=== PATIENT | female | born 1995 | race Caucasian/White ===

== ENCOUNTER 2019-06-07 08:30 | Outpatient (CLI) | payer OTHER, SELFPAY ==
--- NOTE | 2019-06-17 11:23 | SLEEP_ITS ---
CPAP Titration DATE OF STUDY: 06/07/2019 ORDERING PHYSICIAN: Anuja Montenegro MD. REASON FOR THE STUDY: Prior home sleep test on April 16, 2019, for hypersomnolence showing an apnea-hypopnea index of 5, which is elevated with a history of depression, fatigue, and anxiety. She had spikes in heart rate, mild desaturation with severe excessive daytime sleepiness, which was out of proportion to the amount of sleep-disordered breathing. Her Gormania Sleepiness Scale score is 12. She returns at this time for a CPAP titration. MEDICAL COMORBIDITIES: Anxiety, depression, fatigue. MEDICATIONS: 1. Oral contraceptive. 2. Hydroxyzine 25 mg at bedtime. 3. Sertraline 50 mg at bedtime. HABITS: Never smoked tobacco. Caffeine, 1 to 2 per day. No alcohol. HISTORY: This patient is 64 inches tall, weighing 169 pounds with a body mass index of 29, and she is 24 years old. This test was conducted as a full night CPAP titration using the [employer] Multiple Channel System including EOG, EEG, submental EMG, EKG, nasal and oral airflow using thermistors and nasal pressure sensors, chest and abdominal belts, body position data, and pulse oximetry. The study was scored using CMS guidelines. Duration of the study was 457.2 minutes. Sleep time 301.8 minutes. Sleep efficiency is 66%. Sleep latency was 2.4 minutes which is short. REM latency is 162 minutes. She had 40 awakenings and spent 33.6% of the study awake after sleep onset. Sleep architecture showed 9% of stage 1 sleep, 30.7% stage 2 sleep, 21.3% stage 3 sleep, and 5.4% stage REM. She spent 40.5% of the study in the supine position. She had 3 REM episodes. Two of these were extremely short. She woke up after the last REM episode and really could not go back to sleep. She had mostly wakefulness in the last third of the night. The apnea-hypopnea index was 0.4. She had 1 mixed apnea in supine REM and 1 central apnea in supine non-REM. The supine index is 0.7. The supine REM index is 2.7. The lowest desaturation is 94%. She spent no time below 88%. She had 1 desaturation of 4% or greater for an index of 0.1. AROUSALS: 148 arousals for an index of 19.4. She had 3 snores for an index of 0.4, 138 spontaneous arousals for an index of 18.1. Limb movements: 18 isolated limb movements for an index of 3.6. Snorin snoring events, very light. EKG: Mean heart rate 70, without arrhythmia. The patient began the CPAP titration with a Lynne FX nasal pillow. Pressure was gradually increased for subtle respiratory effort related arousals and snoring. The patient did have supine REM. During this titration, CPAP was started at 5 cm and increased to 8 cm with 1 of EPR. She had excellent sleep efficiency on CPAP 7 with 1 of EPR, 98% sleep efficiency with a minimum saturation of 94% and an apnea-hypopnea index of 0.4. When the tech increased the pressure to 8 cm, the patient had 3 hours and 2 minutes in bed, but only had a sleep efficiency of 30%. For some reason, she could not sleep soundly. IMPRESSION: The CPAP titration shows an optimal pressure of 7 cm with 1 of EPR. At that setting, her apnea-hypopnea index is 0.4. However, it was concerning as the patient did not have consolidated sleep and was awake for the last third of the study. She used a small Lynne FX mask. She had mild snoring. We would recommend this with all episodes of sleep. Close followup is recommended to evaluate for effectiveness of treatment. The patient has severe excessive daytime sleepiness with an Gormania of 12 and a clinical history of severe excessive daytime sleepiness, nonrestorative sleep even if she has 15 hours of sleep. There is a family history of obstructive sleep apnea syndrome in her father. Her fatigue and ex
== END 2019-06-07 08:31 | disposition home or self-care (01) ==
LOC: ANHCSM 08:33
PROVIDERS: Visit Provider Family Medicine
DX: G47.33 Obstructive sleep apnea (adult) (pediatric) (principal)
CPT/HCPCS: 95811

== ENCOUNTER 2019-12-08 14:50 | Emergency (ER) | payer OTHER, SELFPAY ==
--- NOTE | ~2019-12-08 | CT_ITS ---
EXAMINATION: CT thoracic spine w con DATE: 12/08/2019 18:55 INDICATION: Mid back pain. TECHNIQUE: Computed tomography (CT) of the thoracic spine was performed with 100 mL Omnipaque 350 int ravenous contrast. Automated exposure control and iterative reconstruction technique were employed. T he dose-length product was 351.72 mGy-cm. COMPARISON: Thoracic spine radiographs 12/08/2019, chest 2 views 12/06/2016 FINDINGS: There is 9 degrees levocurvature of thoracic spine. Vertebral body heights are normal. Ther e are endplate osteophytes at multiple levels. Intervertebral disc heights are normal. There is multi level mild facet joint osteoarthritis. No neural foraminal stenosis. There is mild central canal sten osis at T9-T10. IMPRESSION: 1. Mild thoracic spondylosis. Reviewed, dictated and finalized at location A.
--- NOTE | ~2019-12-08 | XR_ITS ---
EXAMINATION: XR thoracic spine 3V DATE: 12/08/2019 15:22 INDICATION: Mid upper back pain. TECHNIQUE: 3 views of thoracic spine on 4 radiographs were obtained. COMPARISON: Chest 2 views 12/06/2016 FINDINGS: There is 12 degrees levoscoliosis of thoracic spine. Vertebral body heights and interverteb ral disc heights are normal. There are endplate osteophytes at multiple levels. IMPRESSION: 1. Thoracic levoscoliosis. 2. Mild thoracic spondylosis. Reviewed, dictated and finalized at location A.
[2019-12-08 14:52] VITALS: BP 130/79; PULSE 90; RESP 19; O2SAT 100
--- NOTE | 2019-12-08 15:04 | ED.BACK ---
HPI - Back Pain/Injury General Chief Complaint: Back Pain/Injury Stated Complaint: back pain Time Seen by Provider: 12/08/19 14:52 Source: patient Mode of arrival: ambulatory Limitations: no limitations History of Present Illness HPI Narrative: This is a 24 year old female that presents to the ER for mid back pain since this morning. No certain injury noted. Reports she was walking up the steps when it started. Reports the pain is sharp and worse with movement. She took over the counter pain medication with little relief. Denies decreased ROM or numbness Related Data Home Medications Medication Instructions Recorded Confirmed norethindrone 1 mg-ethinyl 1 tablet PO DAILY 03/11/19 estradiol 20 mcg (21)-iron 75 mg (7) tablet Allergies Allergy/AdvReac Type Severity Reaction Status Date / Time No Known Allergies Allergy Verified 12/08/19 14:56 Review of Systems Review of Systems: Narrative: CONSTITUTIONAL: Denies fever SKIN: Denies rash MUSCULOSKELETAL: Reports back pain, joint pain, and myalgia. NEUROLOGIC: Denies numbness, or weakness. All systems reviewed & are unremarkable except as noted in HPI and below PMFSH Past Medical History Medical History (Updated 12/08/19 @ 19:35 by Emiliana Schuler PA-C) Anxiety Family History Family History (Updated 11/13/18 @ 13:20 by DOCTOR UNKNOWN) Mother Family history of malignant neoplasm of breast in first degree relative Grandparent Family history of malignant neoplasm of kidney Father Depression Social History Social History (Updated 12/08/19 @ 15:06 by Emiliana Schuler PA-C) Smoking status: Never smoker Alcohol intake: current Substance use: never Gender identity (if verbalized by the patient): Female Exam Narrative: Exam Narrative: GENERAL: Well-appearing, well-nourished, and in no acute distress. HEAD: Normocephalic, atraumatic. EYES: EOMI. CHEST: Clear to auscultation. No respiratory distress. No wheezes rales or rhonchi HEART: Regular rate and rhythm. No murmur heard. Normal peripheral pulses. BACK: No midline spinal tenderness. Tender to palpation of thoracic paraspinal musculature EXTREMITIES: Normal range of motion. No edema. Strength equal in bilateral upper extremities (5/5) SKIN: Warm, dry, no rash. NEURO: No focal deficits. Alert and oriented x3. PSYCH: Normal mood and affect Course Vital Signs Vital signs: Vital Signs Pulse Rate 90 12/08/19 14:52 Respiratory Rate 19 12/08/19 14:52 Blood Pressure 130/79 12/08/19 14:52 Pulse Oximetry 100 12/08/19 14:52 Temperature 98.8 F 12/08/19 17:07 Pulse Rate 89 12/08/19 17:07 Respiratory Rate 18 12/08/19 17:07 Blood Pressure 115/71 12/08/19 17:07 Pulse Oximetry 99 12/08/19 17:07 MDM - Back Pain/Injury MDM Narrative Medical decision making narrative: Patient presents the emergency department for thoracic back pain since this morning. No known injury or trauma to the area. Pain is worse with movement and relieved with rest. Her vitals are stable. She is afebrile and nontoxic-appearing. She is neurologically intact. Patient given multiple pain medications in the ED, did eventually report relief. CBC is without leukocytosis. No concerning elevation in inflammatory markers. CK is normal. Thoracic x-ray was initially obtained which shows thoracic levoscoliosis and mild thoracic spondylosis. Due to ongoing pain a CT scan of the thoracic spine was obtained which showed mild thoracic spondylosis. Patient was updated on case findings. She was instructed to rest, ice and take [id number] pain medication as needed. She will be given muscle relaxer as needed for pain. She is to follow-up with primary care doctor. She was given warnings to return to the ER Lab Data Attestation: I reviewed the patient's lab results. Result diagrams: 12/08/19 18:36 12/08/19 18:47 Labs: Lab Results 12/08/19 12/08/19 12/08/19
[2019-12-08] MEDS: ACETAMINOPHEN 500 MG TABLET 1000 MG PO (15:27)
[2019-12-08 15:51] VITALS: BP 122/75; PULSE 84; RESP 20; TEMP 36.7; O2SAT 98
[2019-12-08] MEDS: KETOROLAC (*BKC) 60 MG/2 ML VIAL IM (17:04)
[2019-12-08 17:07] VITALS: BP 115/71; PULSE 89; RESP 18; TEMP 37.1; O2SAT 99
[2019-12-08] MEDS: ONDANSETRON INJ 4 MG/2 ML VIAL IV PUSH (18:38)
[2019-12-08 18:40] VITALS: BP 121/77; PULSE 88; RESP 19; TEMP 36.8; O2SAT 98
[2019-12-08] MEDS: MORPHINE SULFATE 4 MG/ML INJ IV PUSH (18:40)
[2019-12-08 18:42] LABS: Basophils Absolute Auto 0.1 K/mm3 (0.0-0.1); Basophils Percent Auto 0.5 % (0.2-1.2); Eosinophils Percent Auto 0.4 % (0-4.4); Hematocrit 38.4 % (37.0-47.0); Hemoglobin 12.7 g/dL (12.0-15.0); Immature Granulocyte Absolute 0.04 K/mm3 (0.00-0.031); Immature Granulocyte Percent A 0.4 % (0-0.5); Lymphocytes Absolute Auto 3.11 K/mm3 (0.9-3.2); Lymphocytes Percent Auto 29.1 % (18.3-44.2); Mean Corpuscular HGB Conc 33.1 g/dl (32-36); Mean Corpuscular Hemoglobin 29.5 pg (26-34); Mean Corpuscular Volume 89.3 fl (80-100); Mean Platelet Volume 9.4 fl (7.4-10.4); Monocytes Absolute Auto 0.4 K/mm3 (0.1-0.6); Monocytes Percent Auto 3.7 % (2.6-8.5); Neutrophils Percent Auto 65.9 % (45.5-73.1); Platelet Count Result 311 k/mm3 (150-375); Red Cell Distribution Width 12.7 % (11.5-14.5); White Blood Count 10.7 K/mm3 (4.5-10.0)
[2019-12-08 18:49] LABS: Estimated CRCL calculation 95 ml/min; Estimated Glomerular Filt Rate > 60
[2019-12-08 18:54] LABS: Creatine Kinase 47 U/L (30-135)
[2019-12-08 18:57] LABS: Anion Gap 9 mmol/L (8-16); Blood Urea Nitrogen 10 mg/dL (7-17); CRP 1.4 mg/dL (<1.0); Calcium 9.7 mg/dL (8.4-10.2); Carbon Dioxide 24 mmol/L (22-30); Chloride 104 mmol/L (98-107); Estimated CRCL calculation 107 ml/min; Estimated Glomerular Filt Rate > 60; Glucose 94 mg/dL (65-105); Potassium 4.1 mmol/L (3.4-5.0); Sodium 137 mmol/L (137-145)
[2019-12-08 19:17] LABS: Erythrocyte Sedimentation Rate 21 mm/hr (0-20)
[2019-12-08 20:30] VITALS: BP 109/72; PULSE 84; RESP 16; TEMP 36.6; O2SAT 100
== END 2019-12-08 20:36 | disposition home or self-care (01) ==
PROVIDERS: Physician Assistant; Emergency Provider Emergency Medicine
DX: M54.6 Pain in thoracic spine (principal); M47.814 Spondylosis without myelopathy or radiculopathy, thoracic region
CPT/HCPCS: 36415; 72072; 72129; 80048; 81025; 82550; 85025; 85652; 86140; 96372; 96374; 96375; 99284; A9270; J1885; J2270; J2405; J3360; Q9967